=== PATIENT | male | born 1935 | race Caucasian/White ===

== ENCOUNTER → 2018-08-19 | Outpatient (CLI) | payer MEDICARE, BC ==
[~2018-08-19] MED LIST: BUPIVACAINE MPF 0.25% 30 ML VIAL. ONE; IOHEXOL 300 MG/ML 50 ML VIAL. ONE; LIDOCAINE 1% PF 30 ML VIAL. ONE; methylPREDNISolone ACETATE 40 MG/ML VIAL. ONE
== END | disposition home or self-care (01) ==
LOC: SURG 12:30
PROVIDERS: ATTEND Anesthesiology Pain Medicine
DX: M54.16 Radiculopathy, lumbar region (principal); I10 Essential (primary) hypertension; J44.9 Chronic obstructive pulmonary disease, unspecified; G47.30 Sleep apnea, unspecified; I25.2 Old myocardial infarction; I25.10 Atherosclerotic heart disease of native coronary artery without angina pectoris; Z95.0 Presence of cardiac pacemaker; M19.90 Unspecified osteoarthritis, unspecified site; Z88.0 Allergy status to penicillin; Z95.5 Presence of coronary angioplasty implant and graft; Z88.1 Allergy status to other antibiotic agents
CPT/HCPCS: 64483; 64484; J1030; J2001; J3490; Q9967

== ENCOUNTER → 2018-10-14 | Outpatient (CLI) | payer MEDICARE, BC ==
[~2018-10-14] MED LIST changes: -BUPIVACAINE MPF 0.25% 30 ML VIAL. ONE; +BUPIVACAINE MPF 0.5% 30 ML VIAL. ONE; -IOHEXOL 300 MG/ML 50 ML VIAL. ONE; -methylPREDNISolone ACETATE 40 MG/ML VIAL. ONE; +methylPREDNISolone ACETATE 80 MG/ML VIAL. ONE
== END | disposition home or self-care (01) ==
LOC: SURG 13:13 → EDBD 13:45
PROVIDERS: ATTEND Anesthesiology Pain Medicine
DX: M17.12 Unilateral primary osteoarthritis, left knee (principal); G47.30 Sleep apnea, unspecified; J44.9 Chronic obstructive pulmonary disease, unspecified; I10 Essential (primary) hypertension; E11.9 Type 2 diabetes mellitus without complications; I25.10 Atherosclerotic heart disease of native coronary artery without angina pectoris; M19.90 Unspecified osteoarthritis, unspecified site; M62.81 Muscle weakness (generalized); E07.9 Disorder of thyroid, unspecified; G62.9 Polyneuropathy, unspecified; K21.9 Gastro-esophageal reflux disease without esophagitis; R51 Headache; R56.9 Unspecified convulsions; I25.2 Old myocardial infarction; N42.9 Disorder of prostate, unspecified; Z88.0 Allergy status to penicillin; Z79.899 Other long term (current) drug therapy; Z95.5 Presence of coronary angioplasty implant and graft; Z95.0 Presence of cardiac pacemaker; Z88.8 Allergy status to other drugs, medicaments and biological substances; Z91.048 Other nonmedicinal substance allergy status
CPT/HCPCS: 20610; J1040; J2001; J3490

== ENCOUNTER → 2019-04-20 | Day surgery (SDC) | payer MEDICARE, BC ==
[~2019-04-20] MED LIST changes: +ACET500T68 PO; +ALBUTEROL SULFATE 2.5 MG/3 ML NEBU. NEB PRN; +APIX5TAB3 PO; +ATROPINE 0.5 MG/5 ML DISP.SYRIN. IV PRN; -BUPIVACAINE MPF 0.5% 30 ML VIAL. ONE; +BUSP5TAB PO; +CLON0.5T PO; +FLUT1DIS3 IH; +FLUT9.9S NS; +FURO-69 PO; +IPRA4AER INH; +IV RINGERS SOLUTION,LACTATED 1,000 ML IV SCH; +LEVO100T5 PO; -LIDOCAINE 1% PF 30 ML VIAL. ONE; +LIDOCAINE 2% PF Vial for OR 5 ML VIAL. ONE; +METO-239 PO; +MIRA50TA PO; +NALOXONE 0.4 MG/ML VIAL. IV PRN; +NITR0.4T22 SL; +ONDANSETRON PF 4 MG/2 ML VIAL. IV PRN; +PANT40TA5 PO; +PHEN100C PO; +PREG75CA PO; +PROPOFOL 10,000 MCG/ML (20ML) VIAL IV ONE; +PROPOFOL 20 ML IV ONE; +SIMV20TA PO; +SIMV20TA3 PO; +SUCR1TAB35 PO; +TAMS0.4C97 PO; +TRAM50TA PO; +XOPENEX0.63 MG/3 NEB; +diphenhydrAMINE 50 MG/ML VIAL IV PRN; -methylPREDNISolone ACETATE 80 MG/ML VIAL. ONE
[2019-04-20 15:15] VITALS: BP 118/69
== END | disposition home or self-care (01) ==
LOC: SURG 13:19 → MERGE 13:19
PROVIDERS: ATTEND Internal Medicine Gastroenterology
DX: K29.50 Unspecified chronic gastritis without bleeding (principal); K21.9 Gastro-esophageal reflux disease without esophagitis; I10 Essential (primary) hypertension; J44.9 Chronic obstructive pulmonary disease, unspecified; Z88.0 Allergy status to penicillin; Z90.49 Acquired absence of other specified parts of digestive tract; Z95.0 Presence of cardiac pacemaker; Z88.8 Allergy status to other drugs, medicaments and biological substances; Z91.040 Latex allergy status
CPT/HCPCS: 43239; J2704; J7120; J2001

== ENCOUNTER → 2019-04-29 | Outpatient (CLI) | payer MEDICARE, BC ==
[2019-04-20 15:15] VITALS: BP 118/69
[~2019-04-29] MED LIST changes: -ALBUTEROL SULFATE 2.5 MG/3 ML NEBU. NEB PRN; -ATROPINE 0.5 MG/5 ML DISP.SYRIN. IV PRN; +IOHEXOL 240 MG/ML 50ML VIAL. ONE; +IOHEXOL 300 MG/ML 75 ML VIAL. IV ONE; -IV RINGERS SOLUTION,LACTATED 1,000 ML IV SCH; -LIDOCAINE 2% PF Vial for OR 5 ML VIAL. ONE; -NALOXONE 0.4 MG/ML VIAL. IV PRN; -ONDANSETRON PF 4 MG/2 ML VIAL. IV PRN; -PROPOFOL 10,000 MCG/ML (20ML) VIAL IV ONE; -PROPOFOL 20 ML IV ONE; -diphenhydrAMINE 50 MG/ML VIAL IV PRN
--- NOTE | 2019-04-29 13:41 | RAD ---
CT ABDOMEN W/CONTRAST Indication: Left upper quadrant and epigastric pain for months. Exposure: One or more of the following individualized dose reduction techniques were utilized for this examination: 1. Automated exposure control 2. Adjustment of the mA and/or kV according to patient size 3. Use of iterative reconstruction technique. Technique: Intravenous contrast was given. Oral contrast was given. Comparison: None FINDINGS: Linear markings in the lung bases, compatible with fibrosis and/or atelectasis. Right lobe of liver is elongated at 19.5 cm, otherwise unremarkable. Spleen is unremarkable. Pancreas is unremarkable. No evidence of adrenal mass. Kidneys demonstrate symmetric enhancement. No hydronephrosis. Tiny subcentimeter renal lesions bilaterally too small to characterize. Gallbladder surgically absent. Aorta is mildly calcified as are major branches. No evidence of aneurysm. No significant lymph node enlargement. Visualized bowel loops are not distended. Mild stool within the colon. No evidence of ascites or pneumoperitoneum in the abdomen. Degenerative changes of the spine with stenosis. IMPRESSION: 1. Elongated right lobe of the liver. 2. Mild atelectasis or infiltrate in the lung bases. 3. Tiny subcentimeter renal lesions are too small to characterize. 4. Degenerative spondylosis and stenosis. Electronically signed by: Haroldo Borja MD (04/29/2019 1:38 PM) [facility]
== END | disposition home or self-care (01) ==
LOC: CT 09:55 → MERGE 11:00
PROVIDERS: ATTEND Internal Medicine Gastroenterology
DX: K76.89 Other specified diseases of liver (principal); I70.0 Atherosclerosis of aorta; M47.816 Spondylosis without myelopathy or radiculopathy, lumbar region; M48.061 Spinal stenosis, lumbar region without neurogenic claudication; I10 Essential (primary) hypertension; J44.9 Chronic obstructive pulmonary disease, unspecified; J45.909 Unspecified asthma, uncomplicated; Z90.49 Acquired absence of other specified parts of digestive tract; Z88.0 Allergy status to penicillin; Z91.048 Other nonmedicinal substance allergy status; Z87.448 Personal history of other diseases of urinary system; Z79.01 Long term (current) use of anticoagulants; Z86.79 Personal history of other diseases of the circulatory system; Z95.0 Presence of cardiac pacemaker
CPT/HCPCS: 74160; Q9967

== ENCOUNTER 2019-12-27 15:12 | Inpatient (IN) | payer MEDICARE, BC ==
[~2019-12-27] VITALS: Ht 177.8 cm; Wt 95.5 kg
[~2019-12-27 15:12] MED LIST changes: -IOHEXOL 240 MG/ML 50ML VIAL. ONE; -IOHEXOL 300 MG/ML 75 ML VIAL. IV ONE; +SIMV20TA18 PO; -SIMV20TA3 PO
--- NOTE | 2019-12-27 15:33 | EKG ---
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
[2019-12-27 15:34] LABS: BASO % 1 % (0-3); EOS # 0.1 x10^3/uL (0.0-0.7); EOS % 2 % (0-3); HEMATOCRIT 46.1 % (39.0-53.0); HEMOGLOBIN 15.5 g/dL (13.0-17.5); LYMPH # 2.2 x10^3/uL (1.0-4.8); LYMPH % 39 % (24-48); MEAN CORPUSCULAR HEMOGLOBIN 35 pg (25-35); MEAN CORPUSCULAR HGB CONC 34 g/dL (31-37); MEAN CORPUSCULAR VOLUME 103 fL (79-100); MONO # 0.5 x10^3/uL (0.0-1.1); MONO % 9 % (0-9); NEUT # 2.7 x10^3uL (1.8-7.7); NEUT % 49 % (31-73); PLATELET COUNT 159 x10^3/uL (140-400); RED BLOOD COUNT 4.49 x10^6/uL (4.30-5.70); RED CELL DISTRIBUTION WIDTH 13.2 % (11.5-14.5); WHITE BLOOD COUNT 5.6 x10^3/uL (4.0-11.0)
[2019-12-27 15:43] LABS: CALCIUM 9.2 mg/dL (8.5-10.1); CREATININE 1.1 mg/dL (0.7-1.3); GFR 64.1; POTASSIUM 4.3 mmol/L (3.5-5.1)
--- NOTE | 2019-12-27 15:44 | RAD ---
Examination: PORTABLE CHEST 1V History: Chest pain Comparison/Correlation: None Findings: Portable upright frontal view of the chest was obtained. Multilead right-sided pacemaker is present. Heart size is borderline. No pneumothorax. No infiltrate or pleural effusion. Bony structures are unremarkable. Impression: No infiltrate. Electronically signed by: Олег Garcia MD (12/27/2019 3:41 PM) [facility]
[2019-12-27 15:55] LABS: ALBUMIN 3.9 g/dL (3.4-5.0); MAGNESIUM 1.9 mg/dL (1.8-2.4); TOTAL BILIRUBIN 0.4 mg/dL (0.2-1.0); TOTAL PROTEIN 7.9 g/dL (6.4-8.2)
[2019-12-27] MEDS ORDERED: ONDANSETRON PF 4 MG/2 ML VIAL. IV PRN (17:15)
--- NOTE | 2019-12-27 17:19 | PHYS DOC ---
Past History Past Medical History: CAD, High Cholesterol, Hypertension, Seizure Past Surgical History: Pacemaker, Other Additional Past Surgical Histo: stent placements Alcohol Use: None Adult General Chief Complaint Chief Complaint: CHEST PAIN HPI HPI Patient is a 84-year-old male who presented to ER today for evaluation of subst ernal chest pain started 2 PM today. He felt nauseous, having trouble breathing at the time he had chest pain. Patient denies any radiation of the pain. He had been having a cough with nonproductive in nature. Patient denies any fever. He has history of coronary artery disease, had pacemaker placement. Review of Systems Review of Systems Constitutional: Denies fever or chills [] Eyes: Denies change in visual acuity, redness, or eye pain [] HENT: Denies nasal congestion or sore throat [] Respiratory: Denies cough or shortness of breath [] Cardiovascular: No additional information not addressed in HPI [] GI: Denies abdominal pain, nausea, vomiting, bloody stools or diarrhea [] : Denies dysuria or hematuria [] Musculoskeletal: Denies back pain or joint pain [] Integument: Denies rash or skin lesions [] Neurologic: Denies headache, focal weakness or sensory changes [] Endocrine: Denies polyuria or polydipsia [] All other systems were reviewed and found to be within normal limits, except as documented in this note. Current Medications Current Medications Current Medications Medications (Trade) Dose Ordered Sig/Lily Start Time Stop Time Status Last Admin Dose Admin Ondansetron HCl (Zofran) 4 mg PRN Q4HRS PRN 12/27/19 17:15 12/28/19 17:14 UNV Allergies Allergies Allergies Coded Allergies Type Severity Reaction Last Updated Verified Penicillins Allergy Unknown 04/28/19 Yes gemifloxacin Allergy Unknown 04/28/19 Yes Uncoded Allergies Type Severity Reaction Last Updated Verified TAPE Allergy Unknown 04/28/19 Physical Exam Physical Exam Constitutional: Well developed, well nourished, no acute distress, non-toxic appearance. [] HENT: Normocephalic, atraumatic, bilateral external ears normal, oropharynx moist, no oral exudates, nose normal. [] Eyes: PERRLA, EOMI, conjunctiva normal, no discharge. [] Neck: Normal range of motion, no tenderness, supple, no stridor. [] Cardiovascular:Heart rate regular rhythm, no murmur [] Lungs & Thorax: Bilateral breath sounds clear to auscultation [] Abdomen: Bowel sounds normal, soft, no tenderness, no masses, no pulsatile m asses. [] Skin: Warm, dry, no erythema, no rash. [] Back: No tenderness, no CVA tenderness. [] Extremities: No tenderness, no cyanosis, no clubbing, ROM intact, no edema. [] Neurologic: Alert and oriented X 3, normal motor function, normal sensory function, no focal deficits noted. [] Psychologic: Affect normal, judgement normal, mood normal. [] Current Patient Data Vital Signs Vital Signs Date Time Temp Pulse Resp B/P (MAP) Pulse Ox O2 Delivery O2 Flow Rate FiO2 12/27/19 15:31 70 18 164/74 (104) 97 Lab Results Laboratory Tests Test 12/27/19 15:20 White Blood Count 5.6 x10^3/uL (4.0-11.0) Red Blood Count 4.49 x10^6/uL (4.30-5.70) Hemoglobin 15.5 g/dL (13.0-17.5) Hematocrit 46.1 % (39.0-53.0) Mean Corpuscular Volume 103 fL (79-100) H Mean Corpuscular Hemoglobin 35 pg (25-35) Mean Corpuscular Hemoglobin Concent 34 g/dL (31-37) Red Cell Distribution Width 13.2 % (11.5-14.5) Platelet Count 159 x10^3/uL (140-400) Neutrophils (%) (Auto) 49 % (31-73) Lymphocytes (%) (Auto) 39 % (24-48) Monocytes (%) (Auto) 9 % (0-9) Eosinophils (%) (Auto) 2 % (0-3) Basophils (%) (Auto) 1 % (0-3) Neutrophils # (Auto) 2.7 x10^3uL (1.8-7.7) Lymphocytes # (Auto) 2.2 x10^3/uL (1.0-4.8) Monocytes # (Auto) 0.5 x10^3/uL (0.0-1.1) Eosinophils # (Auto) 0.1 x10^3/uL (0.0-0.7) Basophils # (Auto) 0.0 x10^3/uL (0.0-0.2) Prothrombin Time 10.3 SEC (9.4-11.4) Prothrombin Time INR 1.0 (0.9-1.1) Activated Partial Thromboplast Time 27 SEC (23-33) Sodium Level 145 mmol/L (136-145) Potassium Level 4.3 mmol/L (3.5-5.1) Chloride Level 105 mmol/L (98-107) Carbon Dioxide Level 30 mmol/L (21-32) Anion Gap 10 (6-14) Blood Urea Nitrogen 19 mg/dL (8-26) Creatinine 1.1 mg/dL (0.7-1.3) Estimated GFR (Cockcroft-Gault) 64.1 BUN/Creatinine Ratio 17 (6-20) Glucose Level 98 mg/dL (70-99) Calcium Level 9.2 mg/dL (8.5-10.1) Magnesium Level 1.9 mg/dL (1.8-2.4) Total Bilirubin 0.4 mg/dL (0.2-1.0) Aspartate Amino Transferase (AST) 18 U/L (15-37) Alanine Aminotransferase (ALT) 20 U/L (16-63) Alkaline Phosphatase 112 U/L (46-116) Troponin I Quantitative < 0.017 ng/mL (0-0.055) UZ-Bkm-W-Type Natriuretic Peptide 194 pg/mL (0-449) Total Protein 7.9 g/dL (6.4-8.2) Albumin 3.9 g/dL (3.4-5.0) Albumin/Globulin Ratio 1.0 (1.0-1.7) Lipase 181 U/L (73-393) EKG EKG EKG WAS DONE AT 0321, RATE OF 70 BPM, NO STEMI, PAGED RHYTHM. Radiology/Procedures Radiology/Procedures [][address] [id number] IMAGING REPORT Signed PATIENT: GALLO ARVIZU ACCOUNT: [id number] : 1935 LOCATION: ER AGE: 84 SEX: M EXAM STATUS: REG ER ORD. PHYSICIAN: WILMER MARQUEZ DO REASON: chest pain PROCEDURE: PORTABLE CHEST 1V Examination: PORTABLE CHEST 1V History: Chest pain Comparison/Correlation: None Findings: Portable upright frontal view of the chest was obtained. Multilead right-sided pacemaker is present. Heart size is borderline. No pneumothorax. No infiltrate or pleural effusion. Bony structures are unremarkable. Impression: No infiltrate. Electronically signed by: Олег Cornell MD (12/27/2019 3:41 PM) [facility] DICTATED AND SIGNED BY: ОЛЕГ CORNELL MD DATE: 12/27/19 1542 CC: WILMER CARPENTER MD; WILMER MARQUEZ DO ~ Course & Med Decision Making Course & Med Decision Making Pertinent Labs and Imaging studies reviewed. (See chart for details) Patient is a 84-year-old man who was evaluating the ER today due to chest pain, workup did not reveal any acute problem at this time, however with his risk factors, will admit him for observation. Patient is pain-free at this time. Dragon Disclaimer Dragon Disclaimer This electronic medical record was generated, in whole or in part, using a voice recognition dictation system. Departure Departure: Impression: Primary Impression: Chest pain Disposition: ADMITTED INPATIENT Admitting Physician: Wilmer Carpenter Condition: STABLE Referrals: WILMER CARPENTER MD (PCP) HEART Score for Chest Pain PTs The HEART Score for CP Pts HEART Score for Chest Pain: HEART Score for Chest Pain Response (Comments) Value History Moderately Suspicious 1 ECG Nonspecific Repolarizatio 1 Age > 65 2 Risk Factors >3 Risk Factors or Hx CAD 2 Troponin < Normal Limit 0 Total 6 Risk Factors: Risk Factors: DM, Current or recent (<one month) smoker, HTN, HLP, family history of CAD, obesity. Risk Scores: Score 0 - 3: 2.5% MACE over next 6 weeks - Discharge Home Score 4 - 6: 20.3% MACE over next 6 weeks - Admit for Clinical Observation Score 7 - 10: 72.7% MACE over next 6 weeks - Early Invasive Strategies WILMER MARQUEZ DO Dec 27, 2019 17:19
[2019-12-27] MEDS ORDERED: ACETAMINOPHEN 500 MG TABLET PO SCH (18:00)
[2019-12-27] MEDS ORDERED: traMADol 50 MG TABLET PO PRN (18:00)
[2019-12-27] MEDS ORDERED: SUCRALFATE 1 GM TABLET. PO PRN (18:00)
[2019-12-27 18:30] VITALS: BP 135/70
[2019-12-27] MEDS ORDERED: OXYB-36 PO (19:55)
[2019-12-27] MEDS: IPRATRPIUM/ALBUTEROL 0.5/2.5MG 3 ML NEBU. NEB SCH (19:56)
[2019-12-27] MEDS: BUDESONIDE 0.5 MG/2 ML NEBU NEB SCH (19:56)
[2019-12-27] MEDS ORDERED: CHOL200078 PO (20:08)
[2019-12-27] MEDS ORDERED: PROP1DRO6 OP (20:08)
[2019-12-27] MEDS ORDERED: VIT1CAPS12 PO (20:08)
[2019-12-27] MEDS ORDERED: CYCL1DRO EACHEYE (20:09)
[2019-12-27] MEDS ORDERED: MECLIZINE 12.5 MG TABLET. PO SCH (21:00)
[2019-12-27] MEDS ORDERED: PREGABALIN 75 MG CAPSULE PO SCH (21:00)
[2019-12-27] MEDS ORDERED: PHENYTOIN SODIUM EXTENDED 100 MG CAPSULE PO ONE (21:00)
[2019-12-27] MEDS ORDERED: APIXABAN 5 MG TABLET. PO SCH (21:00)
[2019-12-27] MEDS ORDERED: NON FORMULARY ITEM (Levalbuterol Hcl (Xopenex) 1 VIAL) NEB SCH (21:00)
[2019-12-27] MEDS ORDERED: TAMSULOSIN 0.4 MG CAP.ER.24H. PO ONE (21:00)
[2019-12-27] MEDS ORDERED: PANTOPRAZOLE 40 MG TABLET. PO SCH (21:00)
[2019-12-27] MEDS ORDERED: SIMVASTATIN 20 MG TABLET PO SCH ×2 (21:00)
[2019-12-27] MEDS ORDERED: NITROGLYCERIN SUBLINGUAL 0.4 MG BOTTLE OF 25. SL SCH (21:00)
[2019-12-27] MEDS ORDERED: PHENYTOIN SODIUM EXTENDED 100 MG CAPSULE PO SCH (21:00)
[2019-12-27] MEDS ORDERED: PANTOPRAZOLE 40 MG TABLET. PO ONE (21:00)
[2019-12-27] MEDS ORDERED: clonazePAM 1 MG TABLET PO SCH ×2 (21:00)
[2019-12-27] MEDS ORDERED: NON FORMULARY ITEM (Ipratropium/Albuterol Sulfate (Combivent Respimat Inhal) 2 PUFF) INH SCH (21:00)
[2019-12-27] MEDS ORDERED: NON FORMULARY ITEM (Fluticasone/Salmeterol (Advair 250-50 Diskus) 1 PUFF) IH SCH (21:00)
[2019-12-27] MEDS ORDERED: METOPROLOL SUCC 24HR ER 25 MG TAB.ER.24H. PO ONE (21:00)
[2019-12-27] MEDS ORDERED: OXYBUTYNIN CHLORIDE 5 MG TABLET PO ONE (21:00)
[2019-12-27] MEDS: APIXABAN 5 MG TABLET. PO SCH (21:08)
[2019-12-27] MEDS: PREGABALIN 75 MG CAPSULE PO SCH (21:08)
[2019-12-27] MEDS: ACETAMINOPHEN 500 MG TABLET PO SCH (21:10)
[2019-12-27] MEDS ORDERED: NITROGLYCERIN SUBLINGUAL 0.4 MG BOTTLE OF 25. SL PRN (23:00)
[2019-12-27 23:36] VITALS: BP 106/56
[2019-12-28] MEDS: IPRATRPIUM/ALBUTEROL 0.5/2.5MG 3 ML NEBU. NEB SCH ×3 (05:02→15:57)
[2019-12-28] MEDS ORDERED: LEVOTHYROXINE 100 MCG TABLET PO SCH ×2 (06:00→07:30)
[2019-12-28 06:05] VITALS: BP 123/75
[2019-12-28] MEDS ORDERED: PANTOPRAZOLE 40 MG TABLET. PO SCH (07:30)
[2019-12-28] MEDS: PREGABALIN 75 MG CAPSULE PO SCH (07:49)
[2019-12-28] MEDS: ACETAMINOPHEN 500 MG TABLET PO SCH (07:49)
[2019-12-28] MEDS: APIXABAN 5 MG TABLET. PO SCH (07:50)
--- NOTE | 2019-12-28 07:57 | PDOC2 ---
AYE,EMILY BLACK OFF WORKER 12/28/19 0757: CARDIAC CONSULT DATE OF CONSULT Date Of Consult DATE: 12/28/19 TIME: 07:56 REASON FOR CONSULT Reason for Consult Chest Pain REFERRING PHYSICIAN Referring Physician Dr. Joya SOURCE Source: Chart review, Patient HPI History of Present Illness This is an 84 yo male who presented secondary to chest pain. Patient reports he hasn't felt well over the weekend. Friday morning, woke up with body aches. On Friday had significant MORALES that persisted throughout the entire day. Has a histroy of seizures; Friday woke up with "eyes flashing" like he could have had a seizure. Has had cough throughout the weekend. Productive of clear sputum. Friday around 2 pm, developed burning pain in his central chest. [place] like heartburn. Had hamburger for lunch then felt very weak all over. Was short of breath. Thought he maybe had PNA, so he came to the ED for further evaluation and treatment. No associated dizziness, diaphoresis, palpitations, or nausea/vomiting. No recent exertional chest pain or shortness of breath. Has a history of CAD s/p PCI/multiple stents. Follows with [facility] nondestructive tester. Previously with Dr. Maddox, but mostly Shala Herrera APRN now. Cannot recall when his last stress test, echo, or heart cath was. PAST MEDICAL HISTORY Cardiovascular: AFIB, CAD, CHF, HTN, hyperipidemia, Other (aortic aneurysm ) Pulmonary: COPD, Other (ANDRE) CENTRAL NERVOUS SYSTEM: Periperal neuropathy, Seizure GI: GERD, Peptic Ulcer disease Psych: Anxiety, Depression Musculoskeletal: Osteoarthritis Renal/: Benign prostatic enlarg. Endocrine: Hypothyroidism PAST SURGICAL HISTORY Past Surgical History: Appendectomy, Cholecystectomy FAMILY HISTORY Family History: Hypertension SOCIAL HISTORY Smoke: No ALCOHOL: none Drugs: None Lives: with Family CURRENT MEDICATIONS Current Medications Current Medications Ondansetron HCl (Zofran) 4 mg PRN Q4HRS PRN IV NAUSEA/VOMITING; Start 12/27/19 at 17:15; Stop 12/28/19 at 17:14 Clonazepam (KlonoPIN) 1 mg 1X PO ; Start 12/27/19 at 21:00; Stop 12/27/19 at 18:06; Status DC Apixaban (Eliquis) 5 mg BID PO ; Start 12/27/19 at 21:00; Stop 12/27/19 at 18:01; Status DC Metoprolol Succinate (Toprol Xl) 25 mg 1X ONCE PO ; Start 12/27/19 at 21:00; Stop 12/27/19 at 17:58; Status DC Phenytoin Sodium (Dilantin) 300 mg 1X ONCE PO ; Start 12/27/19 at 21:00; Stop 12/27/19 at 18:09; Status DC Pantoprazole Sodium (Protonix) 40 mg 1X ONCE PO ; Start 12/27/19 at 21:00; Stop 12/27/19 at 18:07; Status DC Simvastatin (Zocor) 20 mg HS PO Last administered on 12/27/19at 21:08; Start 12/27/19 at 21:00 Tamsulosin HCl (Flomax) 0.4 mg 1X ONCE PO ; Start 12/27/19 at 21:00; Stop 12/27/19 at 18:13; Status DC Pregabalin (Lyrica) 75 mg BID PO Last administered on 12/28/19at 07:49; Start 12/27/19 at 21:00 Meclizine HCl (Antivert) 25 mg BID PO ; Start 12/27/19 at 21:00; Stop 12/27/19 at 20:04; Status DC Oxybutynin Chloride (Ditropan) 10 mg 1X ONCE PO ; Start 12/27/19 at 21:00; Stop 12/27/19 at 18:06; Status DC Acetaminophen (Tylenol) 1,000 mg Q6HRS PO ; Start 12/27/19 at 18:00; Stop 12/27/19 at 19:36; Status DC Apixaban (Eliquis) 5 mg BID PO Last administered on 12/28/19at 07:50; Start 12/27/19 at 21:00 Buspirone HCl (Buspar) 5 mg DAILY PO ; Start 12/28/19 at 09:00; Stop 12/27/19 at 19:32; Status DC Clonazepam (KlonoPIN) 0.5 mg DAILYWBKFT PO Last administered on 12/28/19at 07:49; Start 12/28/19 at 08:00 Clonazepam (KlonoPIN) 1 mg DAILYWSUP PO ; Start 12/28/19 at 17:00; Stop 12/27/19 at 20:04; Status DC Furosemide (Lasix) 20 mg DAILY PO ; Start 12/28/19 at 09:00; Stop 12/27/19 at 20:04; Status DC Levothyroxine Sodium (Synthroid) 100 mcg DAILYAC PO ; Start 12/28/19 at 07:30; Stop 12/28/19 at 05:10; Status DC Metoprolol Succinate (Toprol Xl) 25 mg DAILY PO Last administered on 12/28/19at 07:50; Start 12/28/19 at 09:00 Nitroglycerin (Nitrostat) 0.4 mg TID SL ; Start 12/27/19 at 21:00; Stop 12/27/19 at 22:51; Status DC Pantoprazole Sodium (Protonix) 40 mg DAILYAC PO ; Start 12/28/19 at 07:30; Stop 12/27/19 at 20:04; Status DC Phenytoin Sodium (Dilantin) 300 mg HS PO Last administered on 12/27/19at 21:10; Start 12/27/19 at 21:00 Pregabalin (Lyrica) 75 mg BID PO ; Start 12/27/19 at 21:00; Stop 12/27/19 at 18:10; Status DC Simvastatin (Zocor) 20 mg QHS PO ; Start 12/27/19 at 21:00; Stop 12/27/19 at 18:10; Status DC Simvastatin (Zocor) 20 mg DAILY PO ; Start 12/28/19 at 09:00; Stop 12/27/19 at 18:10; Status DC Sucralfate (Carafate) 2 gm QIDPRN PRN PO HEARTBURN / GAS; Start 12/27/19 at 18:00; Stop 12/27/19 at 20:04; Status DC Tamsulosin HCl (Flomax) 0.4 mg DAILY PO Last administered on 12/28/19at 07:49; Start 12/28/19 at 09:00 Tramadol HCl (Ultram) 50 mg PRN TID PRN PO PAIN; Start 12/27/19 at 18:00; Stop 12/27/19 at 20:04; Status DC Fluticasone Propionate (Flonase) 2 spray DAILY NS ; Start 12/28/19 at 09:00; Stop 12/27/19 at 19:32; Status DC Non-Formulary Medication (Fluticasone/ Salmeterol (Advair 250-50 Diskus)) 1 puff BID IH ; Start 12/27/19 at 21:00; Stop 12/27/19 at 18:12; Status DC Non-Formulary Medication (Ipratropium/ Albuterol Sulfate (Combivent Respimat Inhal)) 2 puff QID INH ; Start 12/27/19 at 21:00; Stop 12/27/19 at 18:12; Stat us DC Non-Formulary Medication (Levalbuterol Hcl (Xopenex)) 1 vial BID NEB ; Start 12/27/19 at 21:00; Stop 12/27/19 at 18:13; Status DC Mirabegron (Myrbetriq) 50 mg DAILY PO ; Start 12/28/19 at 09:00; Stop 12/27/19 at 20:04; Status DC Albuterol/ Ipratropium (Duoneb) 3 ml RTQID NEB Last administered on 12/28/19at 05:02; Start 12/27/19 at 20:00 Budesonide (Pulmicort) 0.5 mg RTBID NEB Last administered on 12/27/19at 19:56; Start 12/27/19 at 20:00 Buspirone HCl (Buspar) 15 mg DAILY PO Last administered on 12/28/19at 07:50; Start 12/28/19 at 09:00 Fluticasone Propionate (Flonase) 1 spray DAILY NS Last administered on 12/28/19at 07:50; Start 12/28/19 at 09:00 Acetaminophen (Tylenol) 1,000 mg BID PO Last administered on 12/28/19at 07:49; Start 12/27/19 at 21:00 Clonazepam (KlonoPIN) 1 mg HS PO Last administered on 12/27/19at 21:10; Start 12/27/19 at 21:00 Pantoprazole Sodium (Protonix) 40 mg HS PO Last administered on 12/27/19at 21:09; Start 12/27/19 at 21:00 Nitroglycerin (Nitrostat) 0.4 mg PRN TID PRN SL CHEST PAIN; Start 12/27/19 at 23:00 Levothyroxine Sodium (Synthroid) 100 mcg DAILY06 PO Last administered on 12/28/19at 05:29; Start 12/28/19 at 06:00 Active Scripts Active Reported Restasis (Cyclosporine) 1 Each Droperette 1 Drop EACHEYE BID Vitamin D3 (Cholecalciferol (Vitamin D3)) 2,000 Unit Tab.chew 2,000 Unit PO DAILY Systane 0.3-0.4% Eye Drops (Propylene Glycol/Peg 400/Pf) 1 Each Droperette 1 Each OP PRN PRN Preservision Areds Softgel (Vit A/Vit C/Vit E/Zinc/Copper) 1 Each Capsule 1 Cap PO BID 30 Days Oxybutynin Chloride Er (Oxybutynin Chloride) 5 Mg Tab.er.24 1 Tab PO DAILY NITROGLYCERIN SubLingual (Nitroglycerin) 0.4 Mg Tab.subl 1 Tab SL UD Flomax (Tamsulosin Hcl) 0.4 Mg Cap.er.24h 1 Cap PO DAILY Simvastatin 20 Mg Tablet 1 Tab PO QHS Dilantin (Phenytoin Sodium Extended) 100 Mg Capsule 3 Cap PO HS Lyrica (Pregabalin) 75 Mg Capsule 1 Cap PO BID Levothyroxine Sodium 100 Mcg Tablet 1 Tab PO DAILY Advair 250-50 Diskus (Fluticasone/Salmeterol) 1 Each Disk.w.dev 1 Puff IH BID Klonopin (Clonazepam) 0.5 Mg Tablet 2 Tab PO DAILYWSUP Klonopin (Clonazepam) 0.5 Mg Tablet 1 Tab PO DAILYWBKFT Flonase Allergy Relief (Fluticasone Propionate) 9.9 Ml [place].susp 2 Sprays NS BID Xopenex (Levalbuterol Hcl) 0.63 Mg/3 Ml Vial.neb 1 Vial NEB BID Pantoprazole Sodium 40 Mg Tablet.dr 1 Tab PO DAILY Acetaminophen 500 Mg Tablet 2 Tab PO Q6HRS Eliquis (Apixaban) 5 Mg Tablet 5 Mg PO BID Buspirone Hcl 5 Mg Tablet 1 Tab PO DAILY Combivent Respimat Inhal (Ipratropium/Albuterol Sulfate) 4 Gm Aer.w.adap 2 Puff INH QID Metoprolol Succinate ( Xl ) (Metoprolol Succinate) 25 Mg Tab.er.24h 1 Tab PO DAILY ALLERGIES Allergies: Coded Allergies: adhesive tape (Verified Allergy, Intermediate, 12/28/19) Penicillins (Verified Allergy, Unknown, 04/28/19) gemifloxacin (Verified Allergy, Unknown, 04/28/19) ROS Review of Systems 14 point ROS conducted with pertinent positives noted above in HPI PHYSICAL EXAM General: Alert, Oriented X3, Cooperative, No acute distress HEENT: Atraumatic, Mucous membr. moist/pink Lungs: Clear to auscultation, Normal air movement Heart: Regular rate Abdomen: Soft, No tenderness Extremities: No edema, Normal pulses Skin: No rashes, No breakdown Neuro: Normal speech, Sensation intact Psych/Mental Status: Mental status NL, Mood NL MUSCULOSKELETAL: Osteoarthritic changes both hands VITALS Vital Signs Vital Signs Date Time Temp Pulse Resp B/P (MAP) Pulse Ox O2 Delivery O2 Flow Rate FiO2 12/28/19 07:50 71 123/75 12/28/19 06:05 97.5 16 93 Room Air LABS LABS Laboratory Tests Test 12/27/19 15:20 12/27/19 20:07 12/28/19 03:15 White Blood Count 5.6 x10^3/uL (4.0-11.0) Red Blood Count 4.49 x10^6/uL (4.30-5.70) Hemoglobin 15.5 g/dL (13.0-17.5) Hematocrit 46.1 % (39.0-53.0) Mean Corpuscular Volume 103 fL (79-100) Mean Corpuscular Hemoglobin 35 pg (25-35) Mean Corpuscular Hemoglobin Concent 34 g/dL (31-37) Red Cell Distribution Width 13.2 % (11.5-14.5) Platelet Count 159 x10^3/uL (140-400) Neutrophils (%) (Auto) 49 % (31-73) Lymphocytes (%) (Auto) 39 % (24-48) Monocytes (%) (Auto) 9 % (0-9) Eosinophils (%) (Auto) 2 % (0-3) Basophils (%) (Auto) 1 % (0-3) Neutrophils # (Auto) 2.7 x10^3uL (1.8-7.7) Lymphocytes # (Auto) 2.2 x10^3/uL (1.0-4.8) Monocytes # (Auto) 0.5 x10^3/uL (0.0-1.1) Eosinophils # (Auto) 0.1 x10^3/uL (0.0-0.7) Basophils # (Auto) 0.0 x10^3/uL (0.0-0.2) Prothrombin Time 10.3 SEC (9.4-11.4) Prothromb Time International Ratio 1.0 (0.9-1.1) Activated Partial Thromboplast Time 27 SEC (23-33) Sodium Level 145 mmol/L (136-145) Potassium Level 4.3 mmol/L (3.5-5.1) Chloride Level 105 mmol/L (98-107) Carbon Dioxide Level 30 mmol/L (21-32) Anion Gap 10 (6-14) Blood Urea Nitrogen 19 mg/dL (8-26) Creatinine 1.1 mg/dL (0.7-1.3) Estimated GFR (Cockcroft-Gault) 64.1 BUN/Creatinine Ratio 17 (6-20) Glucose Level 98 mg/dL (70-99) Calcium Level 9.2 mg/dL (8.5-10.1) Magnesium Level 1.9 mg/dL (1.8-2.4) Total Bilirubin 0.4 mg/dL (0.2-1.0) Aspartate Amino Transf (AST/SGOT) 18 U/L (15-37) Alanine Aminotransferase (ALT/SGPT) 20 U/L (16-63) Alkaline Phosphatase 112 U/L (46-116) Troponin I Quantitative < 0.017 ng/mL (0-0.055) < 0.017 ng/mL (0-0.055) < 0.017 ng/mL (0-0.055) IZ-Crl-T-Type Natriuretic Peptide 194 pg/mL (0-449) Total Protein 7.9 g/dL (6.4-8.2) Albumin 3.9 g/dL (3.4-5.0) Albumin/Globulin Ratio 1.0 (1.0-1.7) Lipase 181 U/L (73-393) ASSESSMENT/PLAN Assessment/Plan 1. Chest pain, atypical; AMI ruled out. Likely GI in nature. 2. CAD s/p PCI/ multiple stents. Follows with [facility] cardiology 3. Hypertension; controlled 4. Hyperlipidemia; statin 5. PAFIB; maintaining SR. On Eliquis for stroke prophylaxis 6. SSS s/p PPM; intermittent AV pacing 7. Chronic diastolic CHF; appears compensated 8. Aortic aneurysm; outpatient monitoring 9. GERD, PUD 10. Hypothyroidism 11. H/o seizures, vertigo; Dilantin Recommendations Lipids Echo to assess LV systolic function Obtain cardiac records from [facility] Continue secondary prevention measures Eliquis for stroke prophylaxis Metoprolol for rate control If pain recurrent, consider GI cocktail. Consider outpatient ischemic evaluation, will defer to primary nondestructive tester. KIN CLEVELAND MD 12/29/19 1026: CARDIAC CONSULT ASSESSMENT/PLAN Assessment/Plan Patient seen and examined on 12/28/19. Chest pain. Resolved. Has ruled out. No acute EKG changes. History of CAD with stents. Will check an ECHO for LV function and increase activity. Continue present medications. Will follow up with his regular nondestructive tester. History of atrial fibrillation. Rate control and anticoagulation. SSS with a pacemaker. HLD. Continue on statins. Thank you for allowing us to oarticipate in the care of your patient. FAIZAN GRIFFITHS APRN Dec 28, 2019 07:57 KIN CLEVELAND MD Dec 29, 2019 10:26
[2019-12-28] MEDS ORDERED: clonazePAM 0.5 MG TABLET PO SCH (08:00)
[2019-12-28] MEDS ORDERED: TAMSULOSIN 0.4 MG CAP.ER.24H. PO SCH (09:00)
[2019-12-28] MEDS ORDERED: FLUTICASONE 50MCG/NASAL SPRAY 16GM BOTTLE. NS SCH ×2 (09:00)
[2019-12-28] MEDS ORDERED: METOPROLOL SUCC 24HR ER 25 MG TAB.ER.24H. PO SCH (09:00)
[2019-12-28] MEDS ORDERED: busPIRone 15 MG TABLET. PO SCH (09:00)
[2019-12-28] MEDS ORDERED: FUROSEMIDE 20 MG TABLET PO SCH (09:00)
[2019-12-28] MEDS ORDERED: busPIRone 5 MG TABLET. PO SCH (09:00)
[2019-12-28] MEDS ORDERED: MIRABEGRON 25 MG TAB.ER.24H PO SCH (09:00)
[2019-12-28] MEDS ORDERED: SIMVASTATIN 20 MG TABLET PO SCH (09:00)
[2019-12-28] MEDS: BUDESONIDE 0.5 MG/2 ML NEBU NEB SCH (09:40)
[2019-12-28] MEDS ORDERED: ASPIRIN ENTERIC COATED 81 MG TABLET.DR. PO SCH (09:45)
[2019-12-28 10:52] VITALS: BP 97/55
[2019-12-28 14:48] VITALS: BP 104/60
[2019-12-28] MEDS ORDERED: clonazePAM 1 MG TABLET PO SCH (17:00)
--- NOTE | 2019-12-28 18:37 | HP ---
ADMIT DATE: 12/28/2019 HISTORY OF PRESENT ILLNESS: This is an 84-year-old white male with known history of multiple medical problems, came in. The patient was feeling nausea, had substernal chest pain, nonradiating. He did have a productive cough at times. Otherwise, nonproductive. He has a history of coronary artery disease as well as pacemaker placement. He said the pain was fairly constant and unrelenting. It was relieved with some nitroglycerin and as a result of this, the patient was admitted to the hospital for further evaluation and treatment. PAST MEDICAL HISTORY: Tinnitus, cataracts, macular degeneration, hearing aid, seizures, headache, heart attacks, coronary stent, pacemaker x 3, Eliquis; hypertension, respiratory problems, COPD, sleep apnea, uses a CPAP, dilatation of his esophagus, cholecystectomy, epigastric pain, GERD. He has had BPH, incontinence, urinary urgency, arthritis, osteoarthritis, fractures, back pain, endocrine disorders, hypothyroidism, depression, anxiety and skin cancer and chickenpox. Tetanus and influenza up-to-date. FAMILY HISTORY: Positive for hypertension. ALLERGIES: PENICILLIN, ADHESIVE TAPE AND GEMIFLOXACIN. SOCIAL HISTORY: Denies smoking, alcohol or drug use. He is a full code. REVIEW OF SYSTEMS: The patient denies any shortness of breath, but does have chest pain in the left upper chest area, nonradiating. Does have some nausea, but no vomiting and positive family history. Denies abdominal pain per se and neurologically intact, although his Parkinson's disease some similar tremor and seizure-like activity had been reported. The patient had a possibility of a petit mal seizure that he has had in the past. PHYSICAL EXAMINATION: GENERAL: This is a pleasant white male. VITAL SIGNS: Blood pressure anywhere from 97/50 to 104/60, respiratory rate 20, pulse 70, afebrile. HEENT: The patient's head was atraumatic, normocephalic. Eyes: PERRLA without jaundice. The mouth and throat were normal. NECK: Supple, no JVD or thyromegaly. LUNGS: Diminished. Poor movement of air, but basically clear. CARDIOVASCULAR: Irregularly irregular rhythm, 1/6 systolic ejection murmur. ABDOMEN: Protuberant, soft, nontender. EXTREMITIES: No clubbing, cyanosis or edema. NEUROLOGIC: The patient is alert and oriented. Has a staggered speech, has some muscle tone rigidity. The patient otherwise speech is fluent and spontaneous. Stable. No seizure at this time. LABORATORY DATA: The patient's hematology: Hemoglobin and hematocrit 15 and 46. Chemistries 145, 4.3, BUN and creatinine of 19 and 1.1. Coags were basically stable. IMPRESSION: Therefore, chest pain, rule out myocardial infarction, history of coronary artery disease, possible seizure-like activity, petit mal type seizures. PLAN: The patient will be admitted for further evaluation to rule out HI protocol as well as neurological evaluation. WILMER CARPENTER MD DR: ERIKA/annabel JOB#: [id number] / [id number]
[2019-12-28 18:39] VITALS: BP 134/70
[2019-12-28 19:10] LABS: THYROID STIM HORMONE (TSH) 2.017 uIU/mL (0.358-3.740)
--- NOTE | 2019-12-29 04:44 | CONS ---
DATE OF CONSULTATION: 12/28/2019 REFERRING PHYSICIAN: Dr. Joya. REASON FOR CONSULTATION: Blurred vision, generalized weakness, rule out TIA versus stroke. HISTORY OF PRESENT ILLNESS: This is an 84-year-old right-handed male who was admitted through Emergency Room after he presented with substernal chest pain and not feeling well in the weekends. According to the patient, on Friday morning, he woke up with generalized body aches, not able to walk because of unsteadiness because of impaired balance and tendency to fall. He was complaining of severe headaches behind the right eye associated with intermittent flushing, intermittent blurred vision on the left eye and seeing a spot and flashing lights comes and goes that may last from 1-10 minutes. The symptoms have worsened in the last few days. He denies nausea, vomiting, photophobia or phonophobia. The patient has had longstanding history of seizure disorder, but he has not had any recent seizures or head injuries. He also complains of exertional dyspnea. He denies vertigo, palpitations, nausea, vomiting or diaphoresis. PAST MEDICAL HISTORY: Significant for coronary artery disease, status post PCI, bilateral hearing loss, seizure disorder, hypertension, COPD, sleep apnea, on CPAP; GERD, epigastric pain, history of peptic ulcer disease, benign prostate hypertrophy, urinary incontinence, osteoarthritis, chronic low back pain, hypothyroidism, depressions, anxiety, skin cancer, chickenpox and history of macular degeneration. PAST SURGICAL HISTORY: Significant for PCI, bilateral cataract removal with lens implant, cholecystectomy, dilatation of the esophagus. Right foot fracture, required surgery. FAMILY HISTORY: Hypertension. SOCIAL HISTORY: The patient is . He denies smoking, alcohol drinking, or illicit drug use. He lives with his at home. CURRENT MEDICATIONS: Aspirin 81 mg daily, BuSpar 15 mg p.o. daily, Flomax 0.4 mg daily, metoprolol 25 mg daily, clonazepam 0.5 mg daily, levothyroxine 100 mcg daily, nitroglycerin 0.4 p.r.n. sublingually for chest pain, clonazepam 1 mg at bedtime, Tylenol 1000 b.i.d., phenytoin 300 mg, he takes 300 mg p.o. daily, Eliquis 5 mg b.i.d., Lyrica 75 mg b.i.d., simvastatin 20 mg at bedtime and Pulmicort 0.5 nebulizer with albuterol nebulizer. ALLERGIES: ADHESIVE TAPE, GEMIFLOXACIN, and PENICILLIN. REVIEW OF SYSTEMS: A 12-point review of system was performed as mentioned above in history of present illness. PHYSICAL EXAMINATION: GENERAL: Well-developed, well-nourished male, not in acute distress. He weighs 95.5 kilos. VITAL SIGNS: Blood pressure 134/70, respiratory rate 20, pulse 71 and regular, oxygen saturation 96% on room air, and temperature 97.9. HEENT: Normocephalic and atraumatic, otherwise unremarkable. NECK: Supple. Negative for carotid bruit, lymphadenopathy, thyromegaly or JVD. LUNGS: Clear to A and P. CARDIOVASCULAR: Regular rate and rhythm, normal S1, S2. ABDOMEN: Soft. Bowel sounds positive. EXTREMITIES: Negative for cyanosis, clubbing or edema. NEUROLOGICAL: MENTAL STATUS: The patient is alert and oriented x 3. Speech is fluent. There is no language dysfunction. Memory, judgment, and abstracting thinking are fair. The patient denies hallucination or delusion. CRANIAL NERVES: Visual juárez are full. The pupils are reactive to light and accommodation. Extraocular movements are intact. There is no nystagmus. There is no facial motor or sensory deficit. Hearing is intact bilaterally. The palate is elevated symmetrically. Sternocleidomastoid muscles are powerful bilaterally. The patient shrugs his shoulders symmetrically and protrudes his tongue in the midline without fasciculation or atrophy. MOTOR EXAMINATION: No focal muscle bulk was seen. The tone is normal. The strength is 5/5 throughout. Sensory examination: Revealed normal pinprick, light touch, vibratory and position senses. Deep tendon reflexes were symmetric and hypoactive with absent Achilles responses. GAIT: The stance is steady and the gait is normal; however, tandem gait is difficult. LABORATORY DATA: CBC revealed white blood cells of 5.6 thousand, hemoglobin 15.5, hematocrit 46.1, platelet count 159,000. Chemistry revealed sodium of 145, potassium 4.3, chloride 105, CO2 of 30, BUN 19, creatinine 1.1, glucose 98, calcium 9.2. Troponin level is normal. Coagulation: INR is 1 and PT is 10.3. DIAGNOSTIC DATA: Chest x-ray revealed no acute cardiopulmonary process. IMPRESSION: 1. Atypical chest pain, myocardial infarction was ruled out. 2. Blurred vision as described above. Rule out ocular pathology or worsening of macular degeneration versus swelling of the optic nerve. 3. Non-convulsive seizure versus a transient ischemic attack could not be ruled out at this time; however, the patient stated his previous carotid Doppler study revealed no abnormalities. 4. Multiple medical problems include hypertension, hyperlipidemia, gastroesophageal reflux disease, hypothyroidism, chronic lower back pain, coronary artery disease, depression, and anxiety. RECOMMENDATIONS: 1. Continue with current home medications including Eliquis. 2. Follow up with his corn popper, Dr. Lindsay. 3. Continue with current management initiated and medication initiated by Dr. Joya. 4. Follow up with Dr. Reynoso after he sees Ophthalmology on an outpatient basis and to rule out recurrent seizure. M Matheus REYNOSO MD DR: CHAD/annabel JOB#: [id number] / [id number]
== END 2019-12-28 19:22 | disposition home or self-care (01) | DRG 392 ==
LOC: ER 15:12 → 1 SOUTH 17:04 → OBSVTOIN 12-28 11:25
PROVIDERS: ADMIT Family Medicine; ATTEND Family Medicine
DX: K21.9 Gastro-esophageal reflux disease without esophagitis (principal); I50.32 Chronic diastolic (congestive) heart failure; E78.00 Pure hypercholesterolemia, unspecified; I25.10 Atherosclerotic heart disease of native coronary artery without angina pectoris; I11.0 Hypertensive heart disease with heart failure; Z96.1 Presence of intraocular lens; G89.29 Other chronic pain; G40.909 Epilepsy, unspecified, not intractable, without status epilepticus; E03.9 Hypothyroidism, unspecified; E78.5 Hyperlipidemia, unspecified; F32.9 Major depressive disorder, single episode, unspecified; F41.9 Anxiety disorder, unspecified; H91.93 Unspecified hearing loss, bilateral; I48.91 Unspecified atrial fibrillation; I49.5 Sick sinus syndrome; J44.9 Chronic obstructive pulmonary disease, unspecified; N40.0 Benign prostatic hyperplasia without lower urinary tract symptoms; K27.9 Peptic ulcer, site unspecified, unspecified as acute or chronic, without hemorrhage or perforation; G47.33 Obstructive sleep apnea (adult) (pediatric); G62.9 Polyneuropathy, unspecified; M19.90 Unspecified osteoarthritis, unspecified site; Z98.42 Cataract extraction status, left eye; Z98.41 Cataract extraction status, right eye; Z95.5 Presence of coronary angioplasty implant and graft; Z95.0 Presence of cardiac pacemaker; Z87.11 Personal history of peptic ulcer disease; Z85.828 Personal history of other malignant neoplasm of skin; Z82.49 Family history of ischemic heart disease and other diseases of the circulatory system; Z88.8 Allergy status to other drugs, medicaments and biological substances; Z88.0 Allergy status to penicillin
CPT/HCPCS: 36415; 71045; 80053; 80061; 83690; 83735; 83880; 84443; 84484; 85025; 85610; 85730; 93005; 94640; 99285; G0378; G0379; J7626

== ENCOUNTER → 2021-04-13 | Outpatient (CLI) | payer MEDICARE, BC ==
[~2021-04-13] MED LIST changes: +CHOL200078 PO; +CYCL1DRO EACHEYE; +MIRA25TA PO; -MIRA50TA PO; +OXYB-36 PO; -PANT40TA5 PO; +PANT40TA6 PO; +PROP1DRO6 OP; +VIT1CAPS12 PO
--- NOTE | 2021-04-13 10:47 | RAD ---
CT LUMBAR SPINE WO History:Reason: SPINAL STENOSIS URINARY INCONTINENCE SACRAL PAIN / Technique: Noncontrast CT was performed of the lumbar spine. Multiplanar reconstructions were perform ed. Exposure: One or more of the following individualized dose reduction techniques were utilized for thi s examination: 1. Automated exposure control 2. Adjustment of the mA and/or kV according to patient size 3. Use of iterative reconstruction technique. Comparison: None Findings: Interval development of T12 superior endplate mild compression fracture. No retropulsion. Mild retrol isthesis L5 on S1. T12-L1: Vacuum disc phenomenon. Small disc bulge. No canal narrowing. Mild bilateral neuroforaminal narrowing. L1-L2: Vacuum disc phenomenon. Disc bulge. No canal narrowing. No neuroforaminal narrowing. L2-L3: Vacuum disc phenomenon. Broad-based disc bulge. Mild facet arthropathy. Subarticular recess n arrowing. No canal narrowing. Mild bilateral neuroforaminal narrowing. L3-L4: Vacuum disc phenomenon. Broad-based disc bulge. Moderate to advanced facet arthropathy. Moder ate canal narrowing. Subarticular recess narrowing. Moderate left and mild right neuroforaminal narro wing. L4-L5: Vacuum disc phenomenon. Broad-based disc bulge. Moderate facet arthropathy. Mild canal narrow ing. Subarticular recess narrowing. Severe right and moderate left neuroforaminal narrowing. L5-S1: Retrolisthesis. Disc bulge. Advanced facet arthropathy. No canal narrowing. Subarticular rece ss narrowing. Severe right and moderate to severe left neuroforaminal narrowing. Impression: 1. Interval development of T12 superior endplate mild compression fracture, age indeterminant. Recom mend correlation with point tenderness. If persistent clinical concern, MRI can better evaluate. 2. Moderate multilevel lumbar spondylosis most prominent L3-L4 and L4-L5. 3. L3-L4 moderate canal narrowing with L4-5 mild canal narrowing. 4. Neuroforaminal narrowing most severe right L4-5 and right L5-S1. Electronically signed by: Chema Winters DO (04/13/2021 10:44 AM) [facility]
== END ==
LOC: CT 08:47
PROVIDERS: ATTEND Family Medicine
DX: M47.817 Spondylosis without myelopathy or radiculopathy, lumbosacral region (principal); R32 Unspecified urinary incontinence; M48.061 Spinal stenosis, lumbar region without neurogenic claudication
CPT/HCPCS: 72131

== ENCOUNTER → 2021-04-13 | Outpatient (CLI) | payer MEDICARE, BC ==
--- NOTE | 2021-04-13 10:12 | RAD ---
Renal ultrasound without comparison for hematuria, urinary incontinence. Technique an findings: Real-time grayscale and color Doppler evaluation of the kidneys and urinary bl adder is performed. The proximal aorta is obscured, however the mid and distal aorta are nonaneurysma l and patent. IVC is obscured. The right kidney measures 9.7 x 4.3 x 4.4 cm and the left measures 9.9 x 5.4 x 5.2 cm. There is normal color flow to both kidneys with no hydronephrosis or focal parenchym al abnormality. The urinary bladder is decompressed. Ureteral jets are not identified. IMPRESSION: 1. No significant sonographic abnormality. Electronically signed by: Abilio Giles MD (04/13/2021 10:09 AM) [id number]
== END ==
LOC: US 08:52
DX: R31.9 Hematuria, unspecified (principal); R32 Unspecified urinary incontinence
CPT/HCPCS: 76770

== ENCOUNTER → 2021-04-19 | Outpatient (CLI) | payer MEDICARE, BC ==
--- NOTE | 2021-04-19 15:00 | RAD ---
NM BONE SCAN LIMITED, NM INJECTION Clinical Indication: Reason: back pain / Spl. Instructions: pt fell out of the shower approx 1 week a go, also fell in Dec snow blowing, pain since . Pacemaker not MR compatible. Comparison: CT lumbar spine without contrast April 13, 2021. CT lumbar spine without contrast March 08, 2021, [facility]. TECHNIQUE: Patient is injected with 25 mCi of technetium 99m MDP. After routine delay, anterior, post erior, right and left lateral static images of the thoracolumbar spine acquired. Findings: There is horizontally oriented increased tracer uptake localizing to the superior endplate of the T12 vertebral body. There is mild increased tracer uptake on the right at L4/L5, disc space narrowing and reactive endpla te spurring and sclerosis is seen on CT. Tracer uptake in the spine is mildly heterogeneous. Tracer uptake of pelvic bones is symmetric. Tracer uptake of the wrists and shoulders is likely degen erative. Left antecubital injection site is noted. Tracer uptake of ribs is symmetric. Tracer distrib ution in the soft tissues appears normal. IMPRESSION: There is increased tracer uptake localizing to the superior endplate of the T12 vertebral body compat ible with acute/subacute fracture. Electronically signed by: Brice Salazar MD (04/19/2021 2:57 PM) [id number]
== END ==
LOC: NM 09:50
PROVIDERS: ATTEND Family Medicine
DX: M48.54XA Collapsed vertebra, not elsewhere classified, thoracic region, initial encounter for fracture (principal)
CPT/HCPCS: 78300; A9503

== ENCOUNTER → 2021-11-19 | Outpatient (CLI) | payer MEDICARE, BC ==
--- NOTE | 2021-11-19 15:45 | RAD ---
PA and lateral chest. HISTORY: Cough, left upper quadrant abdominal pain PA and lateral views were taken of the chest. Comparison is made with a prior study from December 0. There is a right pacemaker with 2 sets of atrial and ventricular pacing leads, one set of leads is not attached. Lungs are free of infiltrates. Heart is normal in size. There is no pleural effusion. IMPRESSION: 1. No acute chest disease. Electronically signed by: Agustin Tee MD (11/19/2021 3:42 PM) [facility]
[2021-11-19 15:48] LABS: BASO % 0 % (0-3); EOS # 0.1 x10^3/uL (0.0-0.7); EOS % 2 % (0-3); HEMATOCRIT 40.9 % (39.0-53.0); HEMOGLOBIN 14.1 g/dL (13.0-17.5); LYMPH # 2.3 x10^3/uL (1.0-4.8); LYMPH % 32 % (24-48); MEAN CORPUSCULAR HEMOGLOBIN 36 pg (25-35); MEAN CORPUSCULAR HGB CONC 34 g/dL (31-37); MEAN CORPUSCULAR VOLUME 104 fL (79-100); MONO # 0.6 x10^3/uL (0.0-1.1); MONO % 8 % (0-9); NEUT # 4.1 x10^3uL (1.8-7.7); NEUT % 58 % (31-73); PLATELET COUNT 156 x10^3/uL (140-400); RED BLOOD COUNT 3.95 x10^6/uL (4.30-5.70); RED CELL DISTRIBUTION WIDTH 13.2 % (11.5-14.5); WHITE BLOOD COUNT 7.2 x10^3/uL (4.0-11.0)
[2021-11-19 15:55] LABS: ALBUMIN 3.6 g/dL (3.4-5.0); CALCIUM 8.6 mg/dL (8.5-10.1); CREATININE 1.1 mg/dL (0.7-1.3); GFR 63.8; POTASSIUM 4.2 mmol/L (3.5-5.1); TOTAL BILIRUBIN 0.3 mg/dL (0.2-1.0); TOTAL PROTEIN 7.1 g/dL (6.4-8.2)
--- NOTE | 2021-11-19 15:57 | RAD ---
EXAM: Abdomen and pelvis CT without intravenous contrast. HISTORY: Left upper quadrant pain. TECHNIQUE: Computed tomographic images of the abdomen and pelvis were obtained without contrast. Mult iplanar reformatting was performed. *One or more of the following individualized dose reduction techniques were utilized for this examina tion: 1. Automated exposure control. 2. Adjustment of the mA and/or kV according to patient size. 3. Use of iterative reconstruction technique. COMPARISON: None. FINDINGS: Evaluation of the lower thorax demonstrates right greater than left lower lobe pleural pare nchymal scarring. There is no pleural effusion. There are cardiac pacemaker-defibrillator leads. No h epatic lesion is seen on this noncontrast exam. The gallbladder is absent. There are a few pancreatic calcifications due to the sequela of chronic pancreatitis. The spleen and adrenal glands are unremar kable. The stomach is unremarkable. There is nonspecific perinephric stranding. There is no nephrolithiasis. There is no hydronephrosis. There is no appendicitis. There are few colonic diverticula. There is no diverticulitis. There is aor tic and aortic branch vessel calcified atherosclerotic plaque. There is no lymphadenopathy. There is mild bladder wall thickening likely due to relative underdistention or chronic outlet obstru ction. The prostate is mildly enlarged. There is asymmetric fat within the left inguinal canal. There are degenerative changes throughout the spine. There is scoliosis and multilevel listhesis. There ar e partial laminectomy changes at L3-L4. There is multilevel foraminal and central canal stenosis at t he lumbar levels. There is a chronic mild compression deformity at T12. IMPRESSION: 1. No convincing acute abdominal or pelvic finding. 2. Few colonic diverticula. 3. Pancreatic calcifications due to the sequela of chronic pancreatitis. 4. Mild prostatomegaly. There is bladder wall thickening due to underdistention or chronic outlet obs truction. Electronically signed by: Ericka Bryant MD (11/19/2021 3:54 PM) [id number]
[2021-11-19 19:10] LABS: BILIRUBIN,URINE NEG (NEG); CLARITY,URINE CLEAR; COLOR,URINE YELLOW; GLUCOSE,URINE NEG (NEG)
[2021-11-19 19:11] LABS: BACTERIA,URINE 0 /HPF (0-FEW); NITRITE,URINE NEG (NEG); SQUAMOUS EPITHELIAL CELL,UR OCC /LPF; UROBILINOGEN,URINE 0.2 mg/dL (0.2 mg/dL); WBC,URINE 0 /HPF (0-4)
== END ==
LOC: LAB 14:55
PROVIDERS: ATTEND Family Medicine
DX: K57.30 Diverticulosis of large intestine without perforation or abscess without bleeding (principal); N40.0 Benign prostatic hyperplasia without lower urinary tract symptoms; K86.1 Other chronic pancreatitis; K86.89 Other specified diseases of pancreas; J90 Pleural effusion, not elsewhere classified; J98.4 Other disorders of lung; I70.0 Atherosclerosis of aorta; G95.29 Other cord compression; M48.061 Spinal stenosis, lumbar region without neurogenic claudication; M41.86 Other forms of scoliosis, lumbar region; M47.816 Spondylosis without myelopathy or radiculopathy, lumbar region
CPT/HCPCS: 36415; 71046; 74176; 80053; 81001; 83690; 85025